=== PATIENT | male | born 1990 | race Caucasian/White ===

== ENCOUNTER 2018-04-12 13:13 | Emergency (ER) | payer BC ==
[~2018-04-12] VITALS: Ht 167.6 cm; Wt 86.4 kg
[2018-04-12 13:19] VITALS: BP 135/70; PULSE 93; TEMP 99.3
[2018-04-12 14:36] LABS: BASO % 0.7 % (0.0-2.0); GRAN # 1.8 (1.4-6.5); GRAN % 58.2 % (42.2-75.2); HEMATOCRIT 38.7 % (42.0-52.0); LYMPH # 0.8 (1.2-3.4); LYMPH % 27.1 % (20.0-51.0); MEAN CELL VOLUME 87 fl (80.0-100.0); MEAN CORPUSCULAR HEMOGLOBIN 31 pg (27.0-31.0); MEAN CORPUSCULAR HGB CONC 36 g/dl (33.0-37.0); MEAN PLATELET VOLUME 10.5 fl (7.4-10.4); MONO # 0.4 (0.1-0.6); MONO % 13.7 % (1.7-9.3); PLATELET COUNT 121 K/mm3 (130-400); RED BLOOD COUNT 4.47 M/mm3 (4.20-5.60); REDCELL DISTRIBUTION WIDTH-CV 12.1 % (11.5-14.5)
[2018-04-12 14:54] LABS: ALBUMIN 4.1 gm/dL (3.5-5.0); BILIRUBIN,TOTAL 2.1 mg/dL (0.0-1.0); CALCIUM 9.2 mg/dL (8.4-10.2); CREATININE, serum 1.07 mg/dL (0.66-1.25); POTASSIUM 3.9 mmol/L (3.4-5.0); TOTAL PROTEIN 7.5 gm/dL (6.4-8.2)
[2018-04-12] MEDS ORDERED: ZOFRAN ODT4 MG PO (15:37)
== END 2018-04-12 16:07 | disposition home or self-care (01) ==
LOC: COL.ER 13:13
PROVIDERS: Physician Assistant
DX: K30 Functional dyspepsia (principal); Z77.098 Contact with and (suspected) exposure to other hazardous, chiefly nonmedicinal, chemicals